=== PATIENT | female | born 1950 | race Caucasian/White ===

== ENCOUNTER → 2018-02-06 | Outpatient (CLI) | payer MEDICARE ==
[~2018-02-06] MED LIST: ACET325 PO; Colace100 MG PO; GLIP2.5ER PO; Glyburide5 MG PO; Hydrochloroth12.5 MG PO; IBUP800 PO; LISI20 PO; METF500 PO; Norco 5-325 Ta1 EACH PO; OXYACE5T PO; ROXICODONE5 MG PO; RXOXYACE PO; Zofran Odt4 MG SL
== END ==
LOC: LAB SRC 12:42 → LAB SHORT 12:42
DX: N39.0 Urinary tract infection, site not specified (principal)
CPT/HCPCS: 87077; 87086; 87186

== ENCOUNTER → 2019-08-29 | Outpatient (CLI) | payer MEDICARE | END | disposition home or self-care (01) | LOC: LAB SHORT 15:30 → LAB 15:30 | DX: N39.0 Urinary tract infection, site not specified (principal) | CPT/HCPCS: 87086 ==

== ENCOUNTER → 2019-09-10 | Outpatient (CLI) | payer MEDICARE | END | disposition home or self-care (01) | LOC: LAB SHORT 13:30 → LAB SRC 13:30 | DX: N39.0 Urinary tract infection, site not specified (principal); R31.9 Hematuria, unspecified | CPT/HCPCS: 87086 ==

== ENCOUNTER → 2019-09-18 | Outpatient (CLI) | payer MEDICARE | END | disposition home or self-care (01) | LOC: LAB SHORT 18:10 → LAB 18:10 | DX: N39.0 Urinary tract infection, site not specified (principal) | CPT/HCPCS: 87086 ==

== ENCOUNTER → 2020-06-29 | Outpatient (CLI) | payer MEDICARE | END | disposition home or self-care (01) | LOC: LAB SHORT 14:10 → LAB SRC 14:10 | DX: R31.9 Hematuria, unspecified (principal) | CPT/HCPCS: 87077; 87086; 87186 ==

== ENCOUNTER → 2020-07-23 | Outpatient (CLI) | payer MEDICARE ==
[2020-07-23 11:40] LABS: Source, Urine Clean Catch
[2020-07-23 18:22] LABS: Appearance, Urine Hazy (Clear); Bilirubin, Urine Neg (Neg); Blood, Urine 4+ (Neg); Color, Urine Yellow (P-Yellow); Glucose Qualitative, Urine Neg (Neg); Ketones, Urine Neg (Neg); Leukocyte Esterase, Urine 2+ (Neg); Nitrite, Urine Neg (Neg); Protein, Urine Neg (Neg); Specific Gravity, Urine 1.015 (1.003-1.022); Urobilinogen, Urine NORM (Normal)
[2020-07-23 19:08] LABS: Bacteria Rare /hpf; Calcium Oxalate Crystals Mod /hpf; Red Blood Cells, Urine 0-2 /hpf (0-2); Squamous Epithelial Cells Rare /hpf (Few)
== END | disposition home or self-care (01) ==
LOC: LAB SHORT 11:18 → LAB 11:18
PROVIDERS: Physician Assistant
DX: R39.15 Urgency of urination (principal); R35.0 Frequency of micturition
CPT/HCPCS: 81001; 87086

== ENCOUNTER → 2020-08-26 | Outpatient (CLI) | payer MEDICARE ==
[2020-08-26 14:25] LABS: Source, Urine Clean Catch
[2020-08-26 17:55] LABS: Appearance, Urine Clear (Clear); Bilirubin, Urine Neg (Neg); Blood, Urine 2+ (Neg); Color, Urine Yellow (P-Yellow); Glucose Qualitative, Urine Neg (Neg); Ketones, Urine Neg (Neg); Leukocyte Esterase, Urine 1+ (Neg); Nitrite, Urine Neg (Neg); Protein, Urine Neg (Neg); Urobilinogen, Urine NORM (Normal)
[2020-08-26 18:12] LABS: Bacteria Rare /hpf; Red Blood Cells, Urine 0-2 /hpf (0-2); Squamous Epithelial Cells Few /hpf (Few)
[2020-08-26 18:14] LABS: Calcium Oxalate Crystals Mod /hpf
== END | disposition home or self-care (01) ==
LOC: LAB SHORT 13:55 → LAB 13:55 → LAB FUT 08-26 14:20
PROVIDERS: Nurse Practitioner Family
DX: R35.0 Frequency of micturition (principal); R39.15 Urgency of urination
CPT/HCPCS: 81001; 87086

== ENCOUNTER 2020-10-06 08:39 | Day surgery (SDC) | payer MEDICARE ==
[~2020-10-06] VITALS: Ht 172.7 cm; Wt 117.4 kg
--- NOTE | 2020-10-06 10:16 | NUR ---
10/06/20 1016 Olivia Hayden 2 IV ATTEMPTS BY VENITA, 1ST IN L HAND INFILTRATED, 2NDI N L FOREARM WAS SUCCESSFUL
[2020-11-02] MEDS ORDERED: GLUCOPHAGE1000 M1 PO (11:18)
[2020-11-02] MEDS ORDERED: ZESTORETIC 20-121 EA PO (11:18)
[2020-11-02] MEDS ORDERED: PIOG30 PO (11:19)
[2020-11-02] MEDS ORDERED: GLYBURIDE5 M1 PO (11:19)
== END 2020-10-06 11:30 | disposition home or self-care (01) ==
LOC: ORSCSDS 08:39
PROVIDERS: Ophthalmology
PROC: 08RJ3JZ Replacement of Right Lens with Synthetic Substitute, Percutaneous Approach (ICD-10-PCS; principal; 2020-10-06 10:00)
DX: H25.11 Age-related nuclear cataract, right eye (principal); I10 Essential (primary) hypertension; E11.9 Type 2 diabetes mellitus without complications; E66.01 Morbid (severe) obesity due to excess calories; Z68.39 Body mass index [BMI] 39.0-39.9, adult; Z79.84 Long term (current) use of oral hypoglycemic drugs; Z79.899 Other long term (current) drug therapy
CPT/HCPCS: 82947; J2001; J2250; J3010; J3301; J7040; V2632

== ENCOUNTER 2020-11-17 08:01 | Day surgery (SDC) | payer MEDICARE ==
[~2020-11-17] VITALS: Ht 172.7 cm; Wt 116.2 kg
[~2020-11-17 08:01] MED LIST changes: +GLUCOPHAGE1000 M1 PO; +GLYBURIDE5 M1 PO; +PIOG30 PO; +ZESTORETIC 20-121 EA PO
--- NOTE | 2020-11-17 08:30 | NUR ---
11/17/20 0830 Olivia Hayden 0820- ONE DROP TETRACAINE PLACED IN L EYE 0825- PLEDGET PLACED IN L EYE AND PAPER TAPE WAS USED TO CLOSE PT'S EYE, PT TOLERATED WELL
== END 2020-11-17 10:10 | disposition home or self-care (01) ==
LOC: ORSCSDS 08:01
PROVIDERS: Ophthalmology
PROC: 08RK3JZ Replacement of Left Lens with Synthetic Substitute, Percutaneous Approach (ICD-10-PCS; principal; 2020-11-17 09:15)
DX: H25.12 Age-related nuclear cataract, left eye (principal); I10 Essential (primary) hypertension; E11.9 Type 2 diabetes mellitus without complications; E66.01 Morbid (severe) obesity due to excess calories; Z68.39 Body mass index [BMI] 39.0-39.9, adult; Z79.84 Long term (current) use of oral hypoglycemic drugs; Z79.899 Other long term (current) drug therapy
CPT/HCPCS: 82947; A9270; J2001; J2250; J3010; J3301; J7040; V2632

== ENCOUNTER → 2021-03-16 | Outpatient (CLI) | payer MEDICARE | END | disposition home or self-care (01) | LOC: LAB 11:10 → LAB SHORT 11:10 | DX: N39.0 Urinary tract infection, site not specified (principal); R31.9 Hematuria, unspecified | CPT/HCPCS: 87077; 87086; 87186 ==

== ENCOUNTER 2022-11-29 08:51 | Emergency (ER) | payer MEDICARE ==
[~2022-11-29] VITALS: Ht 172.7 cm; Wt 124.7 kg
[2022-11-29 09:49] LABS: BASOPHILS ABSOLUTE AUTO 0.07 K/mm3 (0.00-0.23); BASOPHILS PERCENT AUTO 1 % (0-2); EOSINOPHILS ABSOLUTE AUTO 0.29 K/mm3 (0.00-0.68); EOSINOPHILS PERCENT AUTO 3 % (0-6); Hemoglobin 10.8 g/dL (11.5-16.0); IMMATURE GRAN ABSOLUTE AUTO 0.05 K/mm3 (0.00-0.10); IMMATURE GRAN PERCENT AUTO 1 % (0-1); LYMPHOCYTES ABSOLUTE AUTO 2.52 K/mm3 (0.84-5.20); LYMPHOCYTES PERCENT AUTO 28 % (21-46); MONOCYTES ABSOLUTE AUTO 0.64 K/mm3 (0.16-1.47); MONOCYTES PERCENT AUTO 7 % (4-13); Mean Corpuscular HGB 30.1 pg (26.0-34.0); Mean Corpuscular HGB Conc 32.7 g/dL (31.5-36.5); Mean Corpuscular Volume 92 fL (80-100); NEUTROPHILS ABSOLUTE AUTO 5.48 K/mm3 (1.96-9.15); NEUTROPHILS PERCENT AUTO 61 % (41-73); Platelet Count 254 K/mm3 (150-400); RDW Coefficient Variation 13.4 % (11.7-14.2); RDW Standard Deviation 45.4 fL (35.1-46.3); Red Blood Cell Count 3.59 M/mm3 (3.80-5.20); White Blood Cell Count 9.05 K/mm3 (4.00-11.30)
[2022-11-29 10:12] LABS: Albumin, Blood 3.7 g/dL (3.4-5.0); Albumin/Globulin Ratio 0.9 (0.8-1.8); Bilirubin, Total 0.2 mg/dL (0.1-1.0); Bun/Creatinine Ratio 22.5 (12.0-20.0); Creatinine, Blood 1.42 mg/dL (0.40-1.00); Globulin, Blood 4.1 g/dL (2.2-4.0); Potassium, Blood 5.1 mmol/L (3.5-5.5); Total Protein, Blood 7.8 g/dL (6.4-8.2)
[2022-11-29 10:58] LABS: Source, Urine Clean Catch
[2022-11-29 11:02] LABS: Appearance, Urine Hazy (Clear); Bilirubin, Urine Neg (Neg); Blood, Urine 2+ (Neg); Color, Urine Yellow (P-Yellow); Glucose Qualitative, Urine Neg (Neg); Ketones, Urine Neg (Neg); Leukocyte Esterase, Urine 3+ (Neg); Nitrite, Urine Pos (Neg); Protein, Urine 2+ (Neg); Urobilinogen, Urine NORM (Normal)
[2022-11-29 11:09] LABS: Bacteria Many /hpf; Squamous Epithelial Cells Mod /hpf (Few); White Blood Cells, Urine 25-50 /hpf (0-5)
[2022-11-29 11:10] LABS: Mucus Light (0-Heavy)
== END 2022-11-29 12:34 | disposition home or self-care (01) ==
LOC: ER 08:51
PROVIDERS: Physician Assistant
DX: I49.3 Ventricular premature depolarization (principal); R82.71 Bacteriuria; I10 Essential (primary) hypertension; E11.9 Type 2 diabetes mellitus without complications; Z88.2 Allergy status to sulfonamides; Z88.5 Allergy status to narcotic agent; Z79.899 Other long term (current) drug therapy; Z79.4 Long term (current) use of insulin
CPT/HCPCS: 36415; 80053; 81001; 85025; J7030

== ENCOUNTER 2023-07-31 07:34 | Day surgery (SDC) | payer MEDICARE | END 2023-08-08 22:57 | disposition home or self-care (01) | LOC: MOI US 07:34 | DX: C50.411 Malignant neoplasm of upper-outer quadrant of right female breast (principal) | CPT/HCPCS: 19285; 77065; A4648 ==

== ENCOUNTER 2023-08-03 08:00 | Day surgery (SDC) | payer MEDICARE ==
[2023-08-03] VITALS (11 sets, daily range): BP systolic 120–1456; BP diastolic 55–91
[~2023-08-03] VITALS: Ht 172.7 cm; Wt 113.0 kg
--- NOTE | 2023-08-03 11:03 | NUR ---
Ambulatory in Day Surgery Patient confirms NPO status and agrees with scheduled surgery. History, Chart, Medications and Allergies reviewed before start of procedure.Pre-Op teaching done. Pt verbalizes understanding. Patient States Post-Procedure ride home has been arranged.
--- NOTE | 2023-08-03 14:08 | NUR ---
Patient up to Ambulate independently. Gait steady. Discharge instructions reviewed with patient. Patient verbalizes understanding. Copy given to patient to take home. Patient States Post-Procedure ride home has been arranged. Discharged via wheelchair to private car for ride home.
== END 2023-08-03 14:09 | disposition home or self-care (01) ==
LOC: ORSCMMR 08:00 → NM 08:00 → ORSCMMR 08:01 → NM 08:01 → ORSCMMR 12:30 → NM 14:09
PROVIDERS: Surgery
PROC: 0HBT0ZZ Excision of Right Breast, Open Approach (ICD-10-PCS; principal; 2023-08-03 11:00)
DX: C50.411 Malignant neoplasm of upper-outer quadrant of right female breast (principal); I10 Essential (primary) hypertension; E11.9 Type 2 diabetes mellitus without complications; E66.9 Obesity, unspecified; Z68.37 Body mass index [BMI] 37.0-37.9, adult; Z79.84 Long term (current) use of oral hypoglycemic drugs; Z79.899 Other long term (current) drug therapy
CPT/HCPCS: 38792; 76098; 82947; 88307; 88341; 88342; A9270; A9520; J0690; J1100; J1885; J2250; J2371; J2405; J2704; J3010; J7120; Q9968

== ENCOUNTER 2023-10-25 00:08 | Inpatient (IN) | payer MEDICARE ==
[~2023-10-25] VITALS: Ht 172.7 cm; Wt 112.9 kg
[2023-10-25] VITALS (26 sets, daily range): BP systolic 133–184; BP diastolic 60–92
[2023-10-25 00:51] LABS: BASOPHILS ABSOLUTE AUTO 0.04 K/mm3 (0.00-0.23); BASOPHILS PERCENT AUTO 1 % (0-2); Hematocrit 25.6 % (33.0-51.0); Hemoglobin 8.3 g/dL (11.5-16.0); Mean Corpuscular HGB 30.1 pg (26.0-34.0); Mean Corpuscular HGB Conc 32.4 g/dL (31.5-36.5); Mean Corpuscular Volume 93 fL (80-100); Mean Platelet Volume 10.9 fL (9.1-12.4); Platelet Count 182 K/mm3 (150-400); RDW Coefficient Variation 13.2 % (11.7-14.2); RDW Standard Deviation 44.7 fL (35.1-46.3); Red Blood Cell Count 2.76 M/mm3 (3.80-5.20); White Blood Cell Count 3.03 K/mm3 (4.00-11.30)
[2023-10-25 00:54] LABS: EOSINOPHILS ABSOLUTE AUTO 0.11 K/mm3 (0.00-0.68); EOSINOPHILS PERCENT AUTO 4 % (0-6); IMMATURE GRAN ABSOLUTE AUTO 0.26 K/mm3 (0.00-0.10); IMMATURE GRAN PERCENT AUTO 9 % (0-1); LYMPHOCYTES ABSOLUTE AUTO 1.33 K/mm3 (0.84-5.20); LYMPHOCYTES PERCENT AUTO 44 % (21-46); MONOCYTES ABSOLUTE AUTO 0.55 K/mm3 (0.16-1.47); MONOCYTES PERCENT AUTO 18 % (4-13); NEUTROPHILS ABSOLUTE AUTO 0.74 K/mm3 (1.96-9.15); NEUTROPHILS PERCENT AUTO 24 % (41-73)
[2023-10-25] MEDS ORDERED: CefTRIAXone 1000 MG Vial ONE (01:43)
[2023-10-25] MEDS ORDERED: NS 50 ML IV ONE (01:44)
[2023-10-25] MEDS ORDERED: Nitroglycerin 0.4 MG SUBL ONE (03:22)
[2023-10-25] MEDS ORDERED: Mag Hydrox/AL Hydrox/Simeth 30 ML UDC ONE (03:22)
[2023-10-25 06:14] LABS: Albumin, Blood 2.8 g/dL (3.4-5.0); Albumin/Globulin Ratio 0.8 (0.8-1.8); Bilirubin, Total 0.3 mg/dL (0.1-1.0); Bun/Creatinine Ratio 27.1 (12.0-20.0); Calcium, Blood 8.2 mg/dL (8.5-10.1); Creatinine, Blood 1.33 mg/dL (0.40-1.00); Globulin, Blood 3.5 g/dL (2.2-4.0); Potassium, Blood 4.7 mmol/L (3.5-5.5); Total Protein, Blood 6.3 g/dL (6.4-8.2)
[2023-10-25] MEDS ORDERED: HydrALAZINE HCl 20 MG / ML 1ML Vial IV ONE (06:55)
[2023-10-25] MEDS ORDERED: FLU VACC QS2023-24(6MOS UP)/PF 60 MCG/0.5 ML SYRINGE IM SCH (08:20)
[2023-10-25] MEDS ORDERED: NS 1,000 ML IV SCH (08:30)
[2023-10-25 08:48] LABS: Anti-Xa UFH, PHA Monitoring <0.10 IU/mL; International Normalized Ratio 0.98; Prothrombin Time Results 10.3 Sec (9.7-11.5)
[2023-10-25] MEDS ORDERED: [UNRECOGNIZED DRUG - OTHER] XX ONE (08:50)
[2023-10-25] MEDS ORDERED: Aspirin 325 MG Tab PO ONE (09:00)
[2023-10-25] MEDS ORDERED: Atorvastatin 40 MG Tab PO SCH (09:00)
[2023-10-25] MEDS ORDERED: Lactobacil 2-S.Thermo-Bifido 1 1 Cap PO SCH (09:00)
[2023-10-25] MEDS ORDERED: Insulin Glargine-Yfgn 100 Unit/mL 3 ML SYR SC ONE (09:00)
[2023-10-25] MEDS ORDERED: CeFAZolin Sodium 1,000 MG in NS 50 ML IV SCH (10:00)
[2023-10-25] MEDS ORDERED: Heparin Sodium 5000 Units/ML 1ML MDV IV ONE (11:00)
[2023-10-25] MEDS ORDERED: Heparin Sodium,Porcine/0.5 NS 500 ML IV SCH (11:00)
--- NOTE | 2023-10-25 11:00 | NUR ---
ARRIVAL TO ICU PT ARRIVES TO ICU AT 1004 FOR ACS. PT A&OX 4, FOLLOWS COMMANDS. REPORTS CHEST AND BACK "PRESSURE," 8/10. NITRO GTT STARTED FOR PAIN. SR c PVCS, RATE 90'S. HTN NOTED. PT P/W/D. CAP REFILL <3 SEC. PT REPORTS IMPROVEMENT IN PAIN POST NITRO GTT. DENIES SOB, LUNGS CLEAR, SPEAKING IN FULL SENTENCES. SLIGHT REDNESS NOTED TO BILATERAL FEET, 1+ EDEMA. PUREWICK PLACED. WILL CONTINUE PLAN OF CARE.
[2023-10-25] MEDS ORDERED: Insulin Human Lispro 100 Units/ML 3ML Syringe SC SCH (11:40)
[2023-10-25] MEDS ORDERED: Insulin Regular 100 UNIT/ML 10ML Vial SC SCH (12:00)
[2023-10-25] MEDS ORDERED: Caffeine Citrated 60 MG/3 ML Vial ONE (14:34)
[2023-10-25] MEDS ORDERED: Regadenoson 0.4 MG/5 ML SYRINGE ONE (14:34)
--- NOTE | 2023-10-25 16:08 | NUR ---
Pt. is awake in bed when she welcomes my visit. Pt. is pleasant. Facilitated a life review. Pt. verbalized a life history that included a broken marriage. Pt. verbalized that all of her family that she grew up with have passed. Pt. verbalized that her primary support come from friends. Pt. displayed evidence of engagement and awareness. Prayed with Pt. Pt. verbalized gratitiude for the spiritual care visit and welcomed this air boatswain to return.
--- NOTE | 2023-10-25 17:30 | NUR ---
SHIFT SUMMARY PT CONTINUES ON NITRO GTT AND HEPARIN GTT. PT STATES "PRESSURE" 2/10. STATES SHE IS FEELING BETTER. STRESS TEST STARTED THIS SHIFT, PLAN TO FINISH TOMORROW AM. NPO p 0000. SR, RATE 90'S. BP STABLE. LUNGS CLEAR, ON RA. STANDBY TO USE TOLIET IN ROOM, C/O OCCASIONAL DIZZINESS. WILL CONTINUE PLAN OF CARE UNTIL REPORT TO ONCOMING NURSE.
[2023-10-25] MEDS ORDERED: Melatonin 5 MG Tablet PO PRN (19:35)
[2023-10-25] MEDS ORDERED: HyDROXyzine HCl 25 MG Tab PO PRN (19:40)
[2023-10-25] MEDS ORDERED: Loratadine 10 MG Tab PO SCH (20:00)
--- NOTE | 2023-10-25 21:08 | NUR ---
INITIAL NOTE Report received, patient very anxious in speech during assessment, mostly r/t getting to the restroom due to "diarrhea" when she's anxious. She made it no problem and subsequently remained anxious over blood pressure elevation, and informed this RN of her divorce after 40 years. Orders obtained for medications PRN for sleep and anxiety, given along with CBG check, and insulin given. Warm blanket brought, lights off, cell phone charging per request, no acute concerns, Nitro infusing at 25 presently and Heparin at 15. Monitoring, recent BP 141/68.
[2023-10-25] MEDS ORDERED: Acetaminophen 500 MG Tab PO PRN (23:45)
[2023-10-26] VITALS (23 sets, daily range): BP systolic 91–160; BP diastolic 43–137
[2023-10-26] MEDS ORDERED: Dose Adjust by Pharmacy XX STA ×2 (00:49→10:56)
[2023-10-26 04:27] LABS: Hematocrit 26.2 % (33.0-51.0); Hemoglobin 8.7 g/dL (11.5-16.0); Mean Corpuscular HGB 30.5 pg (26.0-34.0); Mean Corpuscular HGB Conc 33.2 g/dL (31.5-36.5); Mean Corpuscular Volume 92 fL (80-100); Mean Platelet Volume 10.3 fL (9.1-12.4); NRBC ABSOLUTE 0.02 K/mm3 (0.00-0.02); NRBC Auto 0.2 /100 WBC (0.0-0.2); Platelet Count 205 K/mm3 (150-400); RDW Coefficient Variation 13.4 % (11.7-14.2); RDW Standard Deviation 45.1 fL (35.1-46.3); Red Blood Cell Count 2.85 M/mm3 (3.80-5.20); White Blood Cell Count 10.03 K/mm3 (4.00-11.30)
[2023-10-26 04:44] LABS: Bun/Creatinine Ratio 19.4 (12.0-20.0); Calcium, Blood 8.5 mg/dL (8.5-10.1); Creatinine, Blood 1.44 mg/dL (0.40-1.00); Potassium, Blood 4.6 mmol/L (3.5-5.5)
[2023-10-26 05:17] LABS: BAND PERCENT MAN 8 % (0-8); BASOPHILS PERCENT MAN 2 % (0-2); EOSINOPHILS PERCENT MAN 3 % (0-6); LYMPHOCYTES PERCENT MAN 25 % (21-46); METAMYELOCYTE PERCENT MAN 2 % (0-0); MONOCYTES PERCENT MAN 9 % (4-13); MYELOCYTE PERCENT MAN 11 % (0-0); NEUTROPHILS ABSOLUTE MAN 4.81 K/mm3 (1.96-9.15); SEG NEUTROPHILS PERCENT MAN 40 % (41-73); TOTAL CELLS COUNTED 100
--- NOTE | 2023-10-26 06:27 | NUR ---
SHIFT SUMMARY VS remained stable, rcently titrated patient back down to 20 on Nitro gtt due to BP diastolic on lower side, monitoring. Heparin continued to infuse at 15, last Hep Xa therapeutic. Patient awakened very easily during any room entry, discussed concerns with stress test with patient per request, lots of encouragement given. VS remained stable otherwise, afebrile. Output noted, purewick placed earlier for comfort per patient request. Call light in reach, patient resting, report in progress.
[2023-10-26] MEDS ORDERED: Aspirin 81 MG Chew PO SCH (08:00)
[2023-10-26] MEDS ORDERED: Nitroglycerin 0.4 MG SUBL SL PRN (08:35)
[2023-10-26] MEDS ORDERED: AmLODIPine Besylate 5 MG Tab PO SCH (09:00)
--- NOTE | 2023-10-26 09:14 | NUR ---
EUGENIE HAS BEEN AWAKE AND TALKATIVE SINCE ASSUMING CARE THIS AM. SHE IS ANXIOUS ABOUT HER PROCEDURE, ASKING LOTS OF QUESTIONS. SHE IS HUNGRY. NTG GTT STOPPED PER ORDER, WILL CONTINUE TO WATCH BP. AWAIT SECOND PORTION OF THE STRESS TEST.
--- NOTE | 2023-10-26 10:39 | NUR ---
EUGENIE UP TO THE W/C TRANSPORTED BY MARY TO [facility] FOR COMPLETION OF STRESS TEST. PT CONTINUES TO DENY ANY CHESTPAIN OR PRESSURE. BP 150'S/50'S WITH NTG GTT OFF.
--- NOTE | 2023-10-26 11:08 | NUR ---
PT RETURNS FROM NUCLEAR MED, DENIES ANY CHEST PAIN/SHORTNESS OF BREATH OR DIS- COMFORT. HEPARIN GTT CONTINUES AT 15U/KG.
[2023-10-26] MEDS ORDERED: Insulin Human Lispro 100 Units/ML 3ML Syringe SC SCH (11:30)
[2023-10-26] MEDS ORDERED: AMLO5 PO (14:13)
[2023-10-26] MEDS ORDERED: JARDIANCE25 MG PO (14:13)
[2023-10-26] MEDS ORDERED: GLYBURIDE5 M2 PO (14:20)
--- NOTE | 2023-10-26 15:02 | NUR ---
DISCHARGE INSTRUCTIONS GIVEN TO PATIENT BOTH VERBALLY AND WRITTEN. PACKET PROVIDED WITH PRINTED "DISCHARGE INSTRUCTIONS" ON THE FRONT. FRIEND IN THE ROOM TO WITNESS THE INSTRUCTIONS BEING RECEIVED. AWAIT RIDE. RIGHT UPPER ARM POWER GLIDE REMOVED, PRESSURE HELD FOR 3 MINUTES.
--- NOTE | 2023-10-26 16:29 | NUR ---
1550 PT TO WHEELCHAIR AND WHEELED TO VEHICLE IN WHICH FRIEND-MARINO IS THE PATIENT TRANSPORT OFFICER.
[2023-10-26] MEDS ORDERED: Insulin Glargine-Yfgn 100 Unit/mL 3 ML SYR SC SCH (21:00)
== END 2023-10-26 15:55 | disposition home or self-care (01) | DRG 305 ==
LOC: ER 00:08 → ICUE 08:17
PROVIDERS: Emergency Medicine; Family Medicine; ADMIT Internal Medicine
DX: I16.0 Hypertensive urgency (principal); I20.9 Angina pectoris, unspecified; B35.1 Tinea unguium; E11.22 Type 2 diabetes mellitus with diabetic chronic kidney disease; I12.9 Hypertensive chronic kidney disease with stage 1 through stage 4 chronic kidney disease, or unspecified chronic kidney disease; N18.32 Chronic kidney disease, stage 3b; D70.2 Other drug-induced agranulocytosis; D63.1 Anemia in chronic kidney disease; H26.9 Unspecified cataract; I83.93 Asymptomatic varicose veins of bilateral lower extremities; D64.81 Anemia due to antineoplastic chemotherapy; C50.411 Malignant neoplasm of upper-outer quadrant of right female breast; T45.1X5A Adverse effect of antineoplastic and immunosuppressive drugs, initial encounter; Z90.49 Acquired absence of other specified parts of digestive tract; Z90.89 Acquired absence of other organs; Z98.890 Other specified postprocedural states; Z88.5 Allergy status to narcotic agent; Z88.2 Allergy status to sulfonamides; Z79.84 Long term (current) use of oral hypoglycemic drugs; Z79.811 Long term (current) use of aromatase inhibitors; Z87.442 Personal history of urinary calculi
CPT/HCPCS: 36415; 71046; 78452; 80048; 80053; 82947; 83605; 83880; 84484; 85025; 85520; 85610; 85730; 93017; 93970; 96374; 96375; 99285-25; A9270; A9500; C1751; J0360; J0696; J0706; J1644; J1815; J2785

== ENCOUNTER → 2024-10-31 | Outpatient (CLI) | payer MEDICARE ==
[~2024-10-31] MED LIST changes: +AMLO5 PO; +GLYBURIDE5 M2 PO; +JARDIANCE25 MG PO
== END ==
LOC: LAB 17:49 → LAB SHORT 17:49
DX: E11.22 Type 2 diabetes mellitus with diabetic chronic kidney disease (principal); N18.32 Chronic kidney disease, stage 3b; R30.0 Dysuria
CPT/HCPCS: 87077; 87086; 87186

== ENCOUNTER → 2024-12-09 | Outpatient (CLI) | payer MEDICARE ==
[2024-12-09 19:57] LABS: Protein, Urine Quantitative 123.1 mg/dL (0.0-11.9)
== END ==
LOC: LAB 07:00 → LAB SHORT 07:00
PROVIDERS: Internal Medicine Nephrology
DX: N18.30 Chronic kidney disease, stage 3 unspecified (principal); D63.1 Anemia in chronic kidney disease; N25.81 Secondary hyperparathyroidism of renal origin; E55.9 Vitamin D deficiency, unspecified; E78.00 Pure hypercholesterolemia, unspecified; R76.9 Abnormal immunological finding in serum, unspecified; R94.5 Abnormal results of liver function studies; R94.6 Abnormal results of thyroid function studies; D51.8 Other vitamin B12 deficiency anemias; D52.8 Other folate deficiency anemias; D50.9 Iron deficiency anemia, unspecified
CPT/HCPCS: 81050; 82043; 82570; 84156

== ENCOUNTER 2025-05-27 11:07 | Emergency (ER) | payer OTHER, MEDICARE ==
[~2025-05-27] VITALS: Ht 172.7 cm; Wt 106.6 kg
[2025-05-27 11:31] VITALS: BP 117/96
[2025-05-27] MEDS ORDERED: HYDROcodone 5-APAP 325 TAB PO ONE (11:35)
[2025-05-27] MEDS ORDERED: CELE100 PO (13:43)
== END 2025-05-27 14:04 | disposition home or self-care (01) ==
LOC: ER 11:07
DX: S76.112A Strain of left quadriceps muscle, fascia and tendon, initial encounter (principal); S80.02XA Contusion of left knee, initial encounter; I10 Essential (primary) hypertension; E11.9 Type 2 diabetes mellitus without complications; Z88.2 Allergy status to sulfonamides; Z88.5 Allergy status to narcotic agent; Z79.84 Long term (current) use of oral hypoglycemic drugs; Z79.899 Other long term (current) drug therapy; W01.0XXA Fall on same level from slipping, tripping and stumbling without subsequent striking against object, initial encounter
CPT/HCPCS: 73562-LT; 99283-25; A9270